=== PATIENT | male | born 1985 | race Caucasian/White ===

== ENCOUNTER 2016-09-06 18:29 | Emergency (ER) | payer OTHER ==
[~2016-09-06] VITALS: Ht 170.2 cm; Wt 61.2 kg
--- NOTE | 2016-09-06 19:45 | RADIOLOGY REPORT ---
EXAMINATION: LEFT FOOT, 3 VIEWS LEFT ANKLE, 3 VIEWS CLINICAL INFORMATION: Strain, twisting injury. COMPARISON: None TECHNIQUE: 3 views of the left foot and 3 views of the left ankle. FINDINGS: No acute fracture or dislocation is identified. The joint spaces are maintained. The ankle mortise is intact. There is mild medial ankle and foot soft tissue swelling near the talus. IMPRESSION: Mild medial ankle/foot soft tissue swelling. No acute fracture or dislocation.
--- NOTE | 2016-09-06 20:13 | ED ANKLE/FOOT INJURY COMPLAINT ---
History of Present Illness General Chief Complaint: Foot or Ankle Injury Stated Complaint: L FOOT PAIN AND SWELLING Source: patient, friend Exam Limitations: no limitations Vital Signs & Intake/Output Vital Signs & Intake/Output Vital Signs Date Time Temp Pulse Resp B/P Pulse O2 O2 Flow FiO2 Ox Delivery Rate 09/07 2043 97.8 82 18 130/74 100 Room Air 09/067 84 20 136/78 99 ED Intake and Output 09/07 0000 09/06 1200 Intake Total Output Total Balance Patient 135 lb Weight Allergies Coded Allergies: No Known Allergies (09/06/16) Reconcile Medications Oxycodone HCl/Acetaminophen (Percocet 5-325 MG Tablet) 5 MG-325 MG TABLET 1-2 TAB PO Q6P PRN PAIN Triage Note: PER PT HURT L FOOT AT WORK SLIPPED IN HATCHWAY THAT WAS WET Triage Nurses Notes Reviewed? yes HPI: Patient was at work and was walking down outside steps in the basement. The steps were wet and his foot slipped on the last step and he inverted his left foot. Patient did not fall to the ground. Since then he has been having a throbbing pain which is 10 out of 10 to just below his left ankle. The pain increases with ambulation. There is no radiation. Patient denies any other injury. Past History Travel History Traveled to [place] past 21 day No Medical History Any Pertinent Medical History? none Neurological: NONE EENT: NONE Cardiovascular: NONE Respiratory: NONE Gastrointestinal: NONE Hepatic: NONE Renal: NONE Musculoskeletal: NONE Psychiatric: NONE Endocrine: NONE Surgical History Surgical History: non-contributory Psychosocial History What is your primary language Slovenian Tobacco Use: Current Daily Use Daily Tobacco Use Amount/Type: => 5 Cigarettes daily ETOH Use: occasional use Illicit Drug Use: denies illicit drug use Family History Hx Contributory? No Review of Systems Review of Systems Constitutional: Reports: no symptoms. EENTM: Reports: no symptoms. Respiratory: Reports: no symptoms. Cardiovascular: Reports: no symptoms. Musculoskeletal: Reports: see HPI, joint pain, joint swelling. Neurological/Psychological: Reports: no symptoms. Immunologic/Allergic: Reports: no symptoms. Physical Exam Physical Exam General Appearance: well developed/nourished, alert, awake, mild distress Head: atraumatic Eyes: Bilateral: PERRL, EOMI. Neck: normal inspection, supple, full range of motion Cardiovascular/Respiratory: normal breath sounds, normal peripheral pulses, regular rate/rhythm, no respiratory distress Leg/Knee/Thigh Left: normal range of motion, normal inspection Leg/Knee/Thigh Right: normal range of motion, normal inspection Ankle Left: pain, soft tissue tenderness, swelling Ankle Right: normal inspection, normal range of motion Foot Left: evidence of injury, pain, soft tissue tenderness, swelling Neuro/Vascular: normal motor function, normal sensation Tendon: normal tendon function Psychiatric: awake, alert, oriented x 3 Progress Differential Diagnosis: gout, fracture, sprain, contusion Plan of Care: Orders Procedure Date/time Status Durable Medical Equipment 09/06 2034 Active Diagnostic Imaging: Viewed by Me: Radiology Read. Discussed w/RAD: Radiology Read. Radiology Impression: PATIENT: MADHURI MARX PRESENT AGE: 30 PATIENT ACCOUNT NO: [id number] : 85 LOCATION: [facility] ORDERING PHYSICIAN: MANISHA CUENCA DO (TBS) SERVICE DATE: 09/06/16 EXAM TYPE: RAD - XRY-ANKLE 3 OR MORE VIEWS L; XRY-FOOT COMPLETE, LEFT EXAMINATION: LEFT FOOT, 3 VIEWS LEFT ANKLE, 3 VIEWS CLINICAL INFORMATION: Strain, twisting injury. COMPARISON: None TECHNIQUE: 3 views of the left foot and 3 views of the left ankle. FINDINGS: No acute fracture or dislocation is identified. The joint spaces are maintained. The ankle mortise is intact. There is mild medial ankle and foot soft tissue swelling near the talus. IMPRESSION: Mild medial ankle/foot soft tissue swelling. No acute fracture or dislocation. DICTATED BY: MARTÍNEZ GRANGER MD DATE/TIME DICTATED:09/06/161938 [employer] DRIVER:ARACELIS DATE/ TIME TRANSCRIBED:09/06/161938 CONFIDENTIAL, DO NOT COPY WITHOUT APPROPRIATE AUTHORIZATION. <Electronically signed in Other Vendor System> SIGNED BY: MARTÍNEZ GRANGER MD 09/06/161944 Departure Departure Disposition: HOME OR SELF CARE Condition: Stable Clinical Impression Primary Impression: Left ankle sprain Referrals: KAREN MONTELONGO,HERB PATIENT HAS NO PRIMARY CARE DR (PCP/Family) Additional Instructions: KEEP SPLINT ON AND USE CRUTCHES RETURN IF SYMPTOMS WORSEN OR FOR ANY CONCERNS Departure Forms: [employer] Employee [employer] General Discharge Information Prescriptions: Current Visit Scripts Oxycodone HCl/Acetaminophen (Percocet 5-325 MG Tablet) 1-2 TAB PO Q6P PRN PAIN #20 TAB Procedures Splinting Location: LEFT ANKLE Manual Alignment Performed: No Hand-Made Type: orthoglass Splint: posterior walking Splint Applied By: splint applied by me Pre-Proc Neuro Vasc Exam: normal Post-Proc Neuro Vasc Exam: normal
[2016-09-06] MEDS ORDERED: PERCOCET 5-3251 EACH PO (20:35)
[2016-09-06 20:44] VITALS: BP 130/74
== END 2016-09-06 20:45 ==
LOC: ERH 18:29
DX: S93.402A Sprain of unspecified ligament of left ankle, initial encounter (principal); X58.XXXA Exposure to other specified factors, initial encounter; Y92.9 Unspecified place or not applicable; Y93.9 Activity, unspecified
CPT/HCPCS: 73610-LT; 73630-LT